=== PATIENT | female | born 1990 | race Hispanic/Latino ===

== ENCOUNTER 2019-02-27 07:21 | Observation (INO) | payer SELFPAY ==
[2019-02-27 08:09] LABS: #Eosinphils 0.1 thou/uL (0.0-0.7); #Lymphocytes 0.9 thou/uL (1.20-3.40); #Monocytes 0.6 thou/uL (0.11-0.59); #Neutrophils 5.4 thou/uL (1.40-6.50); %Basophils 0.5 % (0.0-1.0); %Eosinophils 1.6 % (0.0-10.0); %Lymphocytes 13.3 % (21.0-51.0); %Monocytes 8.3 % (0.0-10.0); %Neutrophils 76.3 % (42.0-75.0); Hemoglobin 11.3 g/dL (12.0-16.0); Mean Corpuscular HGB CONC 34.2 g/dL (32.0-36.0); Mean Corpuscular Hemoglobin 30.8 pg (27.0-31.0); Mean Corpuscular Volume 90.2 fL (78.0-98.0); Mean Platelet Volume 6.4 fL (7.4-10.4); Platelet Count 302 thou/uL (130-400); RBC Distribution Width 10.5 % (11.5-14.5); Red Blood Cell (RBC) Count 3.68 mill/uL (4.20-5.40)
[2019-02-27] MEDS ORDERED: Ondansetron PF 4 MG/2 ML Vial ONE ×3 (08:11→14:17)
[2019-02-27] MEDS ORDERED: Morphine 4 MG/ML VIAL ONE (08:11)
[2019-02-27 08:26] LABS: ALT (SGPT) Less than 7 U/L (8-55); AST (SGOT) 9 U/L (5-34); Albumin 3.8 g/dL (3.5-5.0); Alkaline Phosphatase 56 U/L (40-150); Anion Gap 11 mmol/L (10-20); BUN (Urea Nitrogen) 11 mg/dL (7.0-18.7); Bilirubin, Total 0.5 mg/dL (0.2-1.2); Calc. Creatinine Clearance 0 mL/min (70-130); Calcium 9.1 mg/dL (7.8-10.44); Carbon Dioxide 26 mmol/L (22-29); Chloride 104 mmol/L (98-107); Estimated GFR-MDRD Greater than 90; Globulin 3.4 g/dL (2.4-3.5); Glucose 90 mg/dL (70-105); Potassium 3.7 mmol/L (3.5-5.1); Protein, Total 7.2 g/dL (6.0-8.3); Sodium 137 mmol/L (136-145)
[2019-02-27 08:32] LABS: Bilirubin Negative (Negative); Blood, Urine 2+ (Negative); Clarity Turbid (Clear); Glucose, Urine (Dipstick) Normal (Negative); Leukocyte 75 Leu/uL (Negative); Mucous/LPF Rare LPF (<2+); Nitrite Negative (Negative); Protein, Urine (Dipstick) 10 mg/dL (Neg-Trace); RBC/HPF 21-50 HPF (0-3); Squamous Epithelial 21-50 HPF (0-3)
[2019-02-27 08:33] LABS: Bacteria/HPF 1+ HPF (None Seen); Pregnancy Test - Urine (BHCG) Negative (Negative); Pregu Control Background? CLEAR/WHITE (CLR/WHITE); Pregu Control Bar Appear? YES (CONTROL BAR); Specific Gravity 1.021 (1.002-1.036)
--- NOTE | 2019-02-27 08:52 | ULT ---
Exam: Right upper quadrant ultrasound: HISTORY: Right upper quadrant pain COMPARISON: None FINDINGS: Visualized liver:Unremarkable. Gallbladder:No evidence of gallstones, wall thickening, edema, or pericholecystic fluid. Common bile duct:Within normal limits. The visualized pancreas is unremarkable. Right kidney is somewhat borderline in size although there i s a history from the family that there is only one kidney. No evidence for abscess or abnormal fluid collection in the right upper quadrant. IMPRESSION: Unremarkable right upper quadrant ultrasound. No evidence of gallstones.
--- NOTE | 2019-02-27 11:09 | CT ---
CT abdomen and pelvis with IV contrast. Oral contrast was not administered. INDICATIONS: Right lower quadrant abdominal pain COMPARISON: 05/31/2013 FINDINGS: Lung bases are clear Minimal prominence of the intrahepatic biliary ducts which is nonspecific. Common bile duct is normal caliber. The gallbladder is contracted. Liver otherwise unremarkable. Spleen and pancreas unremarkable Stomach and duodenum appear unremarkable. Adrenal glands appear normal. 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 There is compensatory hypertrophy of the right kidney. No evidence of hydronephrosis or urinary calculus. Ureters normal size. Urinary bladder unremarkable. Small bowel loops are normal caliber and exhibit normal fold pattern. Appendix is poorly delineated. There is evidence of air within the appendix. No definite evidence of appendicitis. Large amount of stool in the cecum and right colon. The left colon is nondistended. Aorta is normal caliber. No evidence of retroperitoneal or mesenteric adenopathy. Images through the pelvis reveal uterus deviated to the right. This has a similar appearance of the p rior exam. There is evidence of free fluid in the right adnexa. Small amount of free fluid in the cul-de-sac. Inflammatory stranding in the pelvis. Left ovary in the anterior upper left pelvis is again seen. Small left ovarian cyst measures 1.5 cm. Rounded soft tissue mass density in the subcutaneous adipose tissue posterior to the right gluteus mu scle is again noted and is unchanged. Osseous structures appear unremarkable. IMPRESSION: 1. Appendix is poorly delineated, however no definite evidence of appendicitis. 2. Uterus deviated to the right which is stable. Fluid in the right pelvis and inflammatory stranding in the pelvis with fluid in the cul-de-sac. These inflammatory changes of uncertain etiology and significance. 3. Small left ovarian cyst
[2019-02-27] MEDS ORDERED: Piperacillin/Tazobactam 3.375 GM VIAL ONE (12:28)
[2019-02-27] MEDS ORDERED: Sodium Chloride 0.9% 100 ML ONE (12:28)
[2019-02-27] MEDS ORDERED: Iopamidol 370 76% 50 ML VIAL FS ONE (12:55)
[2019-02-27] MEDS ORDERED: ISOVUE-370 76%-LOCM 1 ML ONE (12:55)
[2019-02-27] MEDS ORDERED: Morphine 2 MG/ML SYRINGE SLOW IVP PRN (13:43)
[2019-02-27] MEDS ORDERED: Promethazine HCl 25 MG/ML VIAL IM PRN (13:43)
[2019-02-27] MEDS ORDERED: Morphine 4 MG/ML VIAL SLOW IVP PRN (13:43)
[2019-02-27] MEDS ORDERED: Ondansetron PF 4 MG/2 ML Vial IVP PRN (13:43)
[2019-02-27] MEDS ORDERED: hydrALAZINE 20 MG/ML VIAL SLOW IVP PRN (13:43)
[2019-02-27] MEDS ORDERED: Dextrose 50% Abboject 50 ML SYRINGE SLOW IVP PRN (13:43)
[2019-02-27] MEDS ORDERED: Dextrose 5% in Water 1,000 ML IV PRN (13:43)
[2019-02-27 15:05] VITALS: BMI 19.7
[2019-02-27] MEDS: D5 1/2 NS w/20 mEq KCL 1,000 ML IV SCH (15:35)
[2019-02-27] MEDS: metroNIDAZOLE 500 MG in Premix Bag 1 BAG IVPB SCH ×2 (15:35→22:07)
[2019-02-27] MEDS: Levofloxacin 500 mg/D5W 100 ml Premix Bag IVPB SCH (15:36)
[2019-02-27] MEDS: Famotidine 20 MG TAB PO SCH (20:10)
[2019-02-27] MEDS: Famotidine/PF 20 mg/2ml Vial SLOW IVP SCH (20:11)
--- NOTE | 2019-02-27 20:11 | HP ---
CHIEF COMPLAINT: Right-sided abdominal pain. HISTORY OF PRESENT ILLNESS: This is a 28-year-old female with 2-day history of right-sided abdominal pain radiating to back associated with nausea and vomiting. No previous episodes. No fever. PAST MEDICAL HISTORY: She has deafness. She has only a right kidney congenital. PAST SURGICAL HISTORY: She has had an inguinal hernia repair on the left at age 7. MEDICATIONS: None. ALLERGIES: NO KNOWN DRUG ALLERGIES. SOCIAL HISTORY: She is , unemployed. No tobacco. No alcohol. FAMILY HISTORY: Hypertension and diabetes. PHYSICAL EXAMINATION: GENERAL: She is awake, alert, in no apparent distress. She is very thin female. She does have difficulty with hearing. VITAL SIGNS: Her blood pressure is 106/59, pulse 80, temperature 98.3. LUNGS: Clear. HEART: Regular rate and rhythm. ABDOMEN: Soft. She is mildly tender higher than anticipated area for appendix, close to more right upper quadrant. She is also tender in the right flank and back. EXTREMITIES: Unremarkable. No peritoneal signs. LABORATORY DATA: Her white count is 7, hemoglobin and hematocrit of 11 and 33, and platelet count 302. She does have a left shift, 76% neutrophils. Electrolytes are fine. Normal liver function tests. Urinalysis shows 11 to 20 white cells, 21 to 50 red cells, and positive leuk esterase, 1+ bacteria. ASSESSMENT: Right-sided abdominal pain, unilateral kidney, possible urinary tract infection. Right upper quadrant ultrasound was negative. CT scan showed air within the appendix. It did show some stranding in the pelvis on the right. She may have a urinary tract infection. She may have an atypical appendicitis. PLAN: The plan is to admit, IV antibiotics. Job ID: [id number]
[2019-02-28] MEDS ORDERED: Acetaminophen 1,000 MG in Premix Bag 1 BAG IVPB PRN (00:28)
[2019-02-28] MEDS ORDERED: Ketorolac Tromethamine 30 MG/ML VIAL IVP PRN (00:28)
[2019-02-28] MEDS: D5 1/2 NS w/20 mEq KCL 1,000 ML IV SCH ×2 (00:34→08:12)
[2019-02-28 05:26] LABS: #Eosinphils 0.1 thou/uL (0.0-0.7); #Lymphocytes 1.7 thou/uL (1.20-3.40); #Neutrophils 5.9 thou/uL (1.40-6.50); %Eosinophils 0.9 % (0.0-10.0); %Lymphocytes 19.2 % (21.0-51.0); %Monocytes 11.4 % (0.0-10.0); %Neutrophils 68.4 % (42.0-75.0); Hemoglobin 10.6 g/dL (12.0-16.0); Mean Corpuscular HGB CONC 34.2 g/dL (32.0-36.0); Mean Corpuscular Hemoglobin 31.6 pg (27.0-31.0); Mean Corpuscular Volume 92.2 fL (78.0-98.0); Mean Platelet Volume 6.7 fL (7.4-10.4); Platelet Count 293 thou/uL (130-400); RBC Distribution Width 10.5 % (11.5-14.5); Red Blood Cell (RBC) Count 3.35 mill/uL (4.20-5.40); White Blood Cell (WBC) Count 8.6 thou/uL (4.8-10.8)
[2019-02-28 05:45] LABS: Anion Gap 8 mmol/L (10-20); BUN (Urea Nitrogen) 7 mg/dL (7.0-18.7); Calc. Creatinine Clearance 94 mL/min (70-130); Calcium 8.6 mg/dL (7.8-10.44); Carbon Dioxide 26 mmol/L (22-29); Chloride 105 mmol/L (98-107); Estimated GFR-MDRD Greater than 90; Glucose 100 mg/dL (70-105); Potassium 3.7 mmol/L (3.5-5.1); Sodium 135 mmol/L (136-145)
[2019-02-28] MEDS: metroNIDAZOLE 500 MG in Premix Bag 1 BAG IVPB SCH ×2 (06:18→13:50)
[2019-02-28] MEDS: Famotidine/PF 20 mg/2ml Vial SLOW IVP SCH (08:12)
[2019-02-28] MEDS: Famotidine 20 MG TAB PO SCH (08:33)
[2019-02-28] MEDS: Levofloxacin 500 mg/D5W 100 ml Premix Bag IVPB SCH (13:50)
[2019-02-28 15:19] VITALS: BP 100/69; TEMP 98.2
--- NOTE | 2019-03-01 12:41 | DIS ---
DATE OF ADMISSION: 02/27/2019 DATE OF DISCHARGE: 02/28/2019 DISCHARGE DIAGNOSES: 1. Right lower quadrant pain, resolved. 2. Urinary tract infection. PROCEDURES DURING ADMISSION: IV antibiotics. HOSPITAL COURSE: The patient was admitted, treated with IV antibiotics. Her pain is gone. She is hungry. Started on a regular diet. She is tolerating well. She is discharged home on Levaquin 500 daily. She will follow up with me in 3 days. Job ID: [id number]
[2019-03-01 22:07] LABS: Chlamydia by PCR DETECTED (NotDetected); GC by PCR Not Detected (NotDetected)
== END 2019-02-28 16:05 | disposition home or self-care (01) ==
LOC: ERS 07:21 → SURG B 12:26
PROVIDERS: ADMIT Surgery; ATTEND Surgery
DX: N39.0 Urinary tract infection, site not specified (principal); H91.90 Unspecified hearing loss, unspecified ear; Q60.0 Renal agenesis, unilateral; N83.202 Unspecified ovarian cyst, left side
CPT/HCPCS: 36415; 74177; 76705; 80048; 80053; 81003; 81015; 81025; 85025; 87480; 87491; 87510; 87591; 87660; 96361; 96365; 96366; 96367; 96372; 96375; 96376; G0378; J1885; J1956; J2270; J2405; J2543; J2550; J3490; Q9966; Q9967; S0028

== ENCOUNTER 2020-11-10 17:55 | Emergency (ER) | payer OTHER ==
[2020-11-10] MEDS ORDERED: Ondansetron ODT 4 MG TAB ONE (18:31)
[2020-11-10 18:54] LABS: Pregnancy Test - Urine (BHCG) POSITIVE (Negative); Pregu Control Background? CLEAR/WHITE (CLR/WHITE); Pregu Control Bar Appear? YES (CONTROL BAR); Specific Gravity 1.012 (1.002-1.036)
[2020-11-10 19:45] LABS: Bilirubin Negative (Negative); Blood, Urine 1+ (Negative); Clarity Clear (Clear); Glucose, Urine (Dipstick) Normal (Negative); Ketone, Urine 40 mg/dL (Negative); Leukocyte 250 Leu/uL (Negative); Mucous/LPF Rare LPF (<2+); Nitrite Negative (Negative); Protein, Urine (Dipstick) Negative (Neg-Trace); RBC/HPF 0-3 HPF (0-3); Specific Gravity, Urine 1.013 (1.002-1.036); Urobilinogen Normal mg/dL (Less than 2)
[2020-11-10 19:50] LABS: Bacteria/HPF Rare-Few HPF (None Seen)
== END 2020-11-10 20:15 | disposition home or self-care (01) ==
LOC: ERS 17:55
DX: O21.9 Vomiting of pregnancy, unspecified (principal)
CPT/HCPCS: 81003; 81015; 81025; 99284; Q0162

== ENCOUNTER 2021-02-01 20:16 | Emergency (ER) | payer OTHER ==
[2021-02-01 21:24] LABS: Bacteria/HPF 2+ HPF (None Seen); Bilirubin Negative (Negative); Blood, Urine Trace (Negative); Clarity Clear (Clear); Glucose, Urine (Dipstick) Normal (Negative); Ketone, Urine Negative (Negative); Leukocyte 500 Leu/uL (Negative); Nitrite Negative (Negative); Protein, Urine (Dipstick) Negative (Neg-Trace); RBC/HPF 0-3 HPF (0-3); Specific Gravity, Urine 1.004 (1.002-1.036); Squamous Epithelial 0-3 HPF (0-3); Urobilinogen Normal mg/dL (Less than 2); pH, Urine 6.5 (5.0-9.0)
[2021-02-01 22:51] LABS: Calc. Creatinine Clearance 0 mL/min (70-130)
[2021-02-01] MEDS ORDERED: cefTRIAXone\\ROCEPHIN 1 GM VIAL ONE (23:19)
[2021-02-01] MEDS ORDERED: Lidocaine 1% PF 5 ML VIAL ONE (23:19)
== END 2021-02-01 23:54 | disposition home or self-care (01) ==
LOC: ERS 20:16
DX: N39.0 Urinary tract infection, site not specified (principal)
CPT/HCPCS: 36415; 81003; 81015; 82565; 96372; 99284; J0696

== ENCOUNTER 2023-03-30 22:11 | Emergency (ER) | payer OTHER | END 2023-03-30 23:18 | disposition home or self-care (01) | LOC: ERS 22:11 | DX: L50.9 Urticaria, unspecified (principal) | CPT/HCPCS: 99282 ==

== ENCOUNTER 2024-02-07 08:34 | Emergency (ER) | payer OTHER ==
[2024-02-07] MEDS ORDERED: Ibuprofen 800 MG TAB ONE (09:30)
== END 2024-02-07 10:28 | disposition home or self-care (01) ==
LOC: ERS 08:34
DX: S41.132A Puncture wound without foreign body of left upper arm, initial encounter (principal); S40.022A Contusion of left upper arm, initial encounter; W54.0XXA Bitten by dog, initial encounter

== ENCOUNTER 2024-06-30 02:32 | Emergency (ER) | payer MEDICAID, SELFPAY ==
[2024-06-30 03:11] LABS: #Basophils Less than 0.03 10x3/uL (0.0-0.2); #Eosinophils Less than 0.03 10x3/uL (0.0-0.7); %Basophils 0.1 % (0.0-1.0); %Eosinophils 0.1 % (0.0-10.0); %Neutrophils 89.7 % (42.0-75.0); Hematocrit 37.4 % (36.0-47.0); Hemoglobin 12.7 g/dL (12.0-16.0); Mean Corpuscular Hemoglobin 30.2 pg (27.0-31.0); Mean Corpuscular Volume 88.8 fL (78.0-98.0); Mean Platelet Volume 9.2 fL (7.4-10.4); Platelet Count 203 10x3/uL (130-400); RBC Distribution Width 11.9 % (11.5-14.5); Red Blood Cell (RBC) Count 4.21 mill/uL (4.20-5.40)
[2024-06-30] MEDS ORDERED: Ondansetron PF 4 MG/2 ML Vial ONE (03:13)
[2024-06-30] MEDS ORDERED: Ketorolac Tromethamine 30 MG (1 mL) VIAL ONE (03:13)
[2024-06-30 03:31] LABS: ALT (SGPT) 21 U/L (8-55); AST (SGOT) 28 U/L (5-34); Albumin 3.9 g/dL (3.5-5.0); Alkaline Phosphatase 55 U/L (40-110); Anion Gap 13 mmol/L (10-20); BUN (Urea Nitrogen) 11 mg/dL (7.0-18.7); Bilirubin, Total 1.2 mg/dL (0.2-1.2); Calc. Creatinine Clearance 0 mL/min (70-130); Carbon Dioxide 20 mmol/L (22-29); Chloride 106 mmol/L (98-107); Estimated GFR 120; Globulin 3.8 g/dL (2.4-3.5); Glucose 105 mg/dL (70-105); Lipase 12 U/L (8-78); Potassium 3.4 mmol/L (3.5-5.1); Protein, Total 7.7 g/dL (6.0-8.3); Sodium 136 mmol/L (136-145)
[2024-06-30 04:04] LABS: Bacteria/HPF 4+ HPF (None Seen); Bilirubin Negative (Negative); Blood, Urine 3+ (Negative); CAUTI Indications for Culture Dysuria,urgency,freq; Clarity Turbid (Clear); Glucose, Urine (Dipstick) Normal (Negative); Ketone, Urine 60 mg/dL (Negative); Leukocyte 250 Leu/uL (Negative); Nitrite 2+ (Negative); Protein, Urine (Dipstick) 20 mg/dL (Neg-Trace); Specific Gravity, Urine 1.016 (1.002-1.036); Squamous Epithelial 0-3 HPF (0-3); Urobilinogen Normal mg/dL (Less than 2); WBC/HPF Greater than 50 HPF (0-3); pH, Urine 7.5 (5.0-9.0)
[2024-06-30 04:07] LABS: Pregnancy Test - Urine (BHCG) Negative (Negative); Pregu Control Background? CLEAR/WHITE (CLR/WHITE); Pregu Control Bar Appear? YES (CONTROL BAR); Specific Gravity 1.016 (1.002-1.036); Urine Culture Reflex Yes Yes
[2024-06-30] MEDS ORDERED: Sodium Chloride 0.9% 100 ML ONE (04:36)
[2024-06-30] MEDS ORDERED: cefTRIAXone (ROCEPHIN) 1 GM VIAL ONE (04:36)
== END 2024-06-30 05:16 | disposition home or self-care (01) ==
LOC: ERS 02:32
DX: N39.0 Urinary tract infection, site not specified (principal); B34.9 Viral infection, unspecified
CPT/HCPCS: 36415; 80053; 81001; 81025; 83690; 85025; 87077; 87086; 87186; 87428; 96361; 96365; 96375; J0696; J1885; J2405